=== PATIENT | female | born 1975 | race African-American/Black ===

== ENCOUNTER 2018-07-01 19:54 | Emergency (ER) | payer MEDICAID, SELFPAY ==
[~2018-07-01 19:54] MED LIST: Iopamidol 370 76% 100 ML VIAL ONE
[2018-07-01] MEDS ORDERED: Ampicillin/Sulbactam 3 GM VIAL ONE (20:23)
[2018-07-01] MEDS ORDERED: Dexamethasone 10 MG/ML VIAL ONE (20:23)
[2018-07-01 20:59] LABS: #Basophils 0.1 thou/uL (0.0-0.2); #Lymphocytes 1.7 thou/uL (1.20-3.40); #Monocytes 1.5 thou/uL (0.11-0.59); #Neutrophils 8.9 thou/uL (1.40-6.50); %Basophils 0.8 % (0.0-1.0); %Lymphocytes 14.1 % (21.0-51.0); %Monocytes 12.4 % (0.0-10.0); %Neutrophils 72.7 % (42.0-75.0); Mean Corpuscular Hemoglobin 27.8 pg (27.0-31.0); Mean Corpuscular Volume 89.7 fL (78.0-98.0); Mean Platelet Volume 7.3 fL (7.4-10.4); Platelet Count 331 thou/uL (130-400); Red Blood Cell (RBC) Count 3.59 mill/uL (4.20-5.40); White Blood Cell (WBC) Count 12.3 thou/uL (4.8-10.8)
[2018-07-01 21:00] LABS: Anisocytosis SLIGHT = 6-15 cells (100X) (0-5/hpf); Hypochromia SLIGHT = 6-15 cells (100X) (0-5/hpf)
[2018-07-01 21:10] LABS: ALT (SGPT) 8 U/L (8-55); AST (SGOT) 14 U/L (5-34); Albumin 3.3 g/dL (3.5-5.0); Alkaline Phosphatase 111 U/L (40-150); Anion Gap 13 mmol/L (10-20); BUN (Urea Nitrogen) 6 mg/dL (7.0-18.7); Bilirubin, Total 0.5 mg/dL (0.2-1.2); Calc. Creatinine Clearance 0 mL/min (70-130); Calcium 9.8 mg/dL (7.8-10.44); Carbon Dioxide 27 mmol/L (22-29); Chloride 101 mmol/L (98-107); Estimated GFR-MDRD Greater than 90; Globulin 4.8 g/dL (2.4-3.5); Glucose 102 mg/dL (70-105); Potassium 3.7 mmol/L (3.5-5.1); Protein, Total 8.1 g/dL (6.0-8.3); Sodium 137 mmol/L (136-145)
--- NOTE | 2018-07-01 21:48 | CT ---
CT NECK WITH IV CONTRAST: History: Throat abscess. FINDINGS: Centered at the left tonsils is an irregular shaped fluid collection measuring up to 2.6 x 2.4 x 2.0 cm greatest diameter and surrounded by inflamed tonsillar tissues and small additional pockets of flu id. There is effacement of the left side of the thecal with mild narrowing of the airway at the level of the tonsils. Visualized salivary glands are symmetric. Reactive appearing lymph nodes along each jugular chain. Thyroid gland is within normal limits. IMPRESSION: Large left tonsillar abscess. POS: BST
== END 2018-07-01 23:24 | disposition short-term general hospital (02) ==
LOC: MADERS 19:54
DX: J36 Peritonsillar abscess (principal); F17.210 Nicotine dependence, cigarettes, uncomplicated
CPT/HCPCS: 36415; 70491; 80053; 83605; 85025; 96365; 96375; J0295; J1100; J7050; Q9967